=== PATIENT | female | born 2000 | race Caucasian/White ===

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

== ENCOUNTER 2019-05-27 13:47 | Emergency (ER) | payer OTHER ==
[2019-05-27] MEDS ORDERED: PHENAZOPYRIDINE HCL 200 MG TABLET PO ONE (14:50)
--- NOTE | 2019-05-27 14:52 | ER Document Report ---
ED Medical Screen (RME) - General Chief Complaint: Back Pain Stated Complaint: BLOOD IN URINE,PAINFUL URINATION Time Seen by Provider: 05/27/19 14:41 Primary Care Provider: CLEMENTINA CARVAJAL MD [Primary Care Provider] - Follow up as needed Mode of Arrival: Ambulatory Information source: Patient Notes: 18-year-old female presents emergency department with history of having urinary issues since February. Reports she has been treated multiple times for UTI. She has been seen by the urologist at [facility]. 2 days ago she was seen at [facility] ER CT a transvaginal ultrasound has been done. She reports this morning she noted hematuria. She reports she is been told she had blood in her urine before but never noted it and today she saw clots. She complains of back pain. Denies fever vomiting diarrhea. Patient reports of extreme urgency when she has to use the restroom she needs to go at that time where she is incontinent of urine. Denies fever vomiting diarrhea. I have greeted and performed a rapid initial assessment of this patient. A comprehensive ED assessment and evaluation of the patient, analysis of test results and completion of the medical decision making process will be conducted by additional ED providers. TRAVEL OUTSIDE OF THE [place] IN LAST 30 DAYS: No - Related Data Allergies/Adverse Reactions: No Known Allergies Allergy (Verified 07/22/18 19:15) Past Medical History - Social History Frequency of alcohol use: None Drug Abuse: None Physical Exam - Vital signs Vitals: Temp Pulse Resp BP Pulse Ox 98.1 F 105 H 16 106/62 100 05/27/19 13:55 05/27/19 13:55 05/27/19 13:55 05/27/19 13:55 05/27/19 13:55 Course - Vital Signs Vital signs: Temp Pulse Resp BP Pulse Ox 98.1 F 105 H 16 106/62 100 05/27/19 13:55 05/27/19 13:55 05/27/19 13:55 05/27/19 13:55 05/27/19 13:55 Doctor's Discharge - Discharge Referrals: CLEMENTINA CARVAJAL MD [Primary Care Provider] - Follow up as needed
[2019-05-27 15:27] LABS: ABSOLUTE EOSINOPHILS # (AUTO) 0.1 10^3/uL (0.0-0.6); ABSOLUTE LYMPHOCYTES (AUTO) 1.7 10^3/uL (0.5-4.7); ABSOLUTE MONOCYTES (AUTO) 0.6 10^3/uL (0.1-1.4); ABSOLUTE NEUT (AUTO) 7.8 10^3/uL (1.7-8.2); BASOPHILS % (AUTO) 0.4 % (0-2); EOSINOPHILS % (AUTO) 1.2 % (0-6); HEMATOCRIT 40.4 % (36.0-47.0); HEMOGLOBIN 14.2 g/dL (12.0-15.5); LYMPHOCYTES % (AUTO) 16.7 % (13-45); MEAN CORPUSCULAR HEMOGLOBIN 31.7 pg (27.0-33.4); MEAN CORPUSCULAR HGB CONC 35.1 g/dL (32.0-36.0); MEAN CORPUSCULAR VOLUME 91 fl (80-97); MONOCYTES % (AUTO) 5.4 % (3-13); PLATELET COUNT 261 10^3/uL (150-450); RED BLOOD COUNT 4.47 10^6/uL (3.72-5.28); RED CELL DISTRIBUTION WIDTH 13.1 % (11.5-14.0); SEGMENTED NEUTROPHILS % (AUTO) 76.3 % (42-78); TOTAL CELLS COUNTED % (AUTO) 100 %; WHITE BLOOD COUNT 10.3 10^3/uL (4.0-10.5)
[2019-05-27 15:46] LABS: APPEARANCE,URINE CLOUDY; BILIRUBIN,URINE NEGATIVE (NEGATIVE); GLUCOSE, URINE NEGATIVE (NEGATIVE); KETONES,URINE NEGATIVE (NEGATIVE); LEUKOCYTE ESTERASE,URINE LARGE (NEGATIVE); NITRITE,URINE NEGATIVE (NEGATIVE); PROTEIN,URINE 100 mg/dL (NEGATIVE); URINE SPECIFIC GRAVITY 1.024; UROBILINOGEN,URINE NEGATIVE mg/dL (<2.0)
[2019-05-27 15:48] LABS: COLOR,URINE YELLOW
[2019-05-27 15:49] LABS: ALBUMIN 4.5 g/dL (3.7-5.6); ALKALINE PHOSPHATASE 79 U/L (50-135); ANION GAP 12 (5-19); ASPARTATE AMINO TRANSFERASE 16 U/L (5-30); BILIRUBIN,DIRECT 0.2 mg/dL (0.0-0.4); BILIRUBIN,TOTAL 0.5 mg/dL (0.2-1.3); BLOOD UREA NITROGEN 13 mg/dL (7-20); CALCIUM 9.5 mg/dL (8.4-10.2); CARBON DIOXIDE 27 mmol/L (22-30); CHLORIDE 103 mmol/L (98-107); GLUCOSE 80 mg/dL (75-110); POTASSIUM 3.9 mmol/L (3.6-5.0); TOTAL PROTEIN 7.5 g/dL (6.3-8.2)
--- NOTE | 2019-05-27 17:37 | RADIOLOGY REPORT (SQ) ---
EXAM DESCRIPTION: U/S RETROPERITON LTD COMPLETED DATE/TIME: 05/27/2019 5:26 pm REASON FOR STUDY: hematuria back pain COMPARISON: None. TECHNIQUE: Dynamic and static grayscale images acquired of the kidneys and bladder and recorded on P ACS. Additional selected color Doppler and spectral images recorded. LIMITATIONS: None. FINDINGS: RIGHT KIDNEY: Normal size. Normal echogenicity. No solid or suspicious masses. No h ydronephrosis. No calcifications. LEFT KIDNEY: Normal size. Normal echogenicity. No solid or suspicious masses. No hydronephrosi s. No calcifications. BLADDER: No masses. OTHER FINDINGS: No other significant finding. IMPRESSION: NORMAL RENAL AND BLADDER ULTRASOUND. TECHNICAL DOCUMENTATION: JOB ID: [id number] [employer]- All Rights Reserved Reading location - IP/workstation name: [email or web address]
[2019-05-27] MEDS ORDERED: CEFTRIAXONE INJ 1000 MG VIAL IM ONE (18:12)
[2019-05-27] MEDS ORDERED: OXYCODONE-ACETAMINOPHEN 5-325 MG TABLET PO ONE (18:13)
[2019-05-27] MEDS ORDERED: LIDOCAINE 1% INJ-PF (10 MG/ML) 30 ML SDV IM ONE (18:13)
--- NOTE | 2019-05-27 18:14 | ER Document Report ---
ED GI/ - General Chief Complaint: Back Pain Stated Complaint: BLOOD IN URINE,PAINFUL URINATION Time Seen by Provider: 05/27/19 14:41 Primary Care Provider: CLEMENTINA CARVAJAL MD [Primary Care Provider] - Follow up as needed Mode of Arrival: Ambulatory Notes: 18-year-old female patient presenting to the emergency department chief complaint of dysuria and blood in her urine. Patient reports that she has been seen at the [facility] multiple times recently, has taken multiple antibiotics. She states that every time she has a urinary tract infection nothing grows out on the culture. She denies any nausea, vomiting, diarrhea or fever. Denies abdominal pain. Reports mild low back pain. Patient reports she is supposed to be seeing a urologist she is just waiting for the appointment. TRAVEL OUTSIDE OF THE [place] IN LAST 30 DAYS: No - Related Data Allergies/Adverse Reactions: No Known Allergies Allergy (Verified 07/22/18 19:15) Past Medical History - General Information source: Patient - Social History Smoking Status: Never Smoker Frequency of alcohol use: None Drug Abuse: None Family History: Reviewed & Not Pertinent Patient has suicidal ideation: No Patient has homicidal ideation: No - Medical History Medical History: Negative Past Surgical History: Reports: Hx Section Review of Systems - Review of Systems Constitutional: No symptoms reported EENT: No symptoms reported Cardiovascular: No symptoms reported Respiratory: No symptoms reported Gastrointestinal: No symptoms reported Genitourinary: Dysuria, Hematuria Female Genitourinary: No symptoms reported Musculoskeletal: No symptoms reported Skin: No symptoms reported Hematologic/Lymphatic: No symptoms reported Neurological/Psychological: No symptoms reported Physical Exam - Vital signs Vitals: Temp Pulse Resp BP Pulse Ox 98.1 F 105 H 16 106/62 100 05/27/19 13:55 05/27/19 13:55 05/27/19 13:55 05/27/19 13:55 05/27/19 13:55 - Notes Notes: PHYSICAL EXAMINATION: GENERAL: Well-appearing, well-nourished and in no acute distress. HEAD: Atraumatic, normocephalic. EYES: Pupils equal round and reactive to light, extraocular movements intact, conjunctiva are normal. ENT: Nares patent, oropharynx clear without exudates. Moist mucous membranes. NECK: Normal range of motion, supple without lymphadenopathy LUNGS: Breath sounds clear to auscultation bilaterally and equal. No wheezes rales or rhonchi. HEART: Regular rate and rhythm without murmurs ABDOMEN: Soft, nontender, nondistended abdomen. No guarding, no rebound. No masses appreciated. Female : No CVA tenderness Musculoskeletal: Normal range of motion, no pitting or edema. No cyanosis. NEUROLOGICAL: Cranial nerves grossly intact. Normal speech, normal gait. Normal sensory, motor exams PSYCH: Normal mood, normal affect. SKIN: Warm, Dry, normal turgor, no rashes or lesions noted. Course - Re-evaluation Re-evalutation: Patient appears well, nontoxic, vital signs within normal limits. Patient's abdomen is soft and nontender. Her urinalysis does show signs of urinary tract infection. She states she has had multiple UTIs recently and has recently been on several antibiotics. We will give her a one-time dose of Rocephin IM. She states that there is currently 2 urine cultures pending at [facility] by her urology team. Patient has already had one appointment with her urologist she has a follow-up appointment next week. Patient was encouraged to keep this appointment. Strict ED return precautions were discussed. - Vital Signs Vital signs: Temp Pulse Resp BP Pulse Ox 97.8 F 68 16 113/62 99 05/27/19 19:27 05/27/19 19:27 05/27/19 19:27 05/27/19 19:27 05/27/19 19:27 - Laboratory Result Diagrams: 05/27/19 15:00 05/27/19 15:00 Laboratory results interpreted by me: 05/27/19 15:05 Urine Protein 100 H Urine Blood LARGE H Ur Leukocyte Esterase LARGE H Discharge - Discharge Clinical Impression: Urinary tract infection Qualifiers: Urinary tract infection type: acute cystitis Hematuria presence: with hematuria Qualified Code(s): N30.01 - Acute cystitis with hematuria Condition: Stable Disposition: HOME, SELF-CARE Additional Instructions: You were given a dose of intramuscular Rocephin here in the emergency department today, this is a broad-spectrum antibiotic that should help with the urinary tract infection that appears to be on your urinalysis. You have stated that you have had multiple situations like this where you have been seen and have been t old you have a UTI however nothing grew out on it. For this reason I will not start you on oral antibiotics, we will wait for the culture. Please keep the follow-up appointment you have scheduled with your urologist. Please take Tylenol or ibuprofen in the meantime for any pain. Return to the emergency department with any new or worsening symptoms to include development of fever greater than 101, persistent vomiting or worsening pain. Referrals: CLEMENTINA CARVAJAL MD [Primary Care Provider] - Follow up as needed
[2019-05-27 20:42] VITALS: BP 113/62
== END 2019-05-27 19:35 | disposition home or self-care (01) ==
LOC: ER 13:47
DX: N30.01 Acute cystitis with hematuria (principal)
CPT/HCPCS: 99284; 96372; 36415; 85025; 81025; 80053; 81001; 76775; J3490 ×2; J0696